=== PATIENT | male | born 1940 | race Caucasian/White ===

== ENCOUNTER 2016-08-02 04:48 | Emergency (ER) | payer MEDICARE, OTHER ==
[2016-08-02 01:46] LABS: BASOPHILS 0.4 %; BASOPHILS ABSOLUTE 0.03 10/3/uL (0.0-0.16); EOSINOPHILS 1.3 %; EOSINOPHILS ABSOLUTE 0.09 10/3/uL (0.0-0.53); ER CBC TAT 0 Hrs 08 Mins; IMMATURE GRANULOCYTES 0.1 %; IMMATURE GRANULOCYTES ABSOLUTE 0.01 10/3/uL (0.0-0.11); LYMPHOCYTES 14.4 %; LYMPHOCYTES ABSOLUTE 1.02 10/3/uL (0.67-4.30); MEAN CORPUS HGB CONC 33.6 g/dL (32.0-36.0); MEAN CORPUSCULAR HEMOGLOB 30.3 pg (26.0-34.0); MONOCYTES 6.2 %; MONOCYTES ABSOLUTE 0.44 10/3/uL (0.21-1.20); NEUTROPHILS 77.6 %; PLATELET COUNT 154 10/3/uL (150-400); RBC DISTRIBUTION WIDTH 13.6 % (12.0-16.0); RED CELL COUNT 5.09 10/6/uL (4.7-6.1); WHITE BLOOD CELLS 7.1 10/3/uL (4.5-10.5)
[2016-08-02 01:47] LABS: HEMATOCRIT 45.8 % (40.0-51.0); HEMOGLOBIN 15.4 g/dL (13.6-17.8); MANUAL DIFF NO %
[2016-08-02 01:48] LABS: ASCORBIC ACID (UR NOT ORDER) NEG (NEG); BILIRUBIN, URINE NEGATIVE (NEG); ER URINALYSIS TAT 0 Hrs 00 Mins; KETONE, URINE TRACE MG/DL (NEG); LEUKOCYTE ESTERASE(NOT OR NEG (NEG); NITRITE (URINE) NEG (NEG); WBC (NOT ORDERED) (RFLEX) 1 (0-5)
[2016-08-02 02:01] LABS: BUN (BLOOD UREA NITROGEN) 24 MG/DL (6-23); CALCIUM, SERUM 10.1 MG/DL (8.5-10.4); CHLORIDE, SERUM 108 MMOL/L (96-112); CO2 (CARBON DIOXIDE) 26 MMOL/L (24-34); CREATININE 1.58 MG/DL (0.70-1.30); GFR AFRICAN AMERICAN 49 ML/MIN (>=60); GFR NON AFRICAN AMERICAN 42 ML/MIN (>=60); GLUCOSE, SERUM 129 MG/DL (60-99); POTASSIUM, SERUM 4.3 MMOL/L (3.5-5.3); SODIUM, SERUM 142 MMOL/L (135-148)
[2016-08-02 04:33] LABS: ALBUMIN 4.4 G/DL (3.5-5.0); ALKALINE PHOSPHATASE 82 U/L (45-117); DIRECT BILIRUBIN 0.3 MG/DL (0.0-0.4); INDIRECT BILIRUBIN(NOT ORDER) 1.7 MG/DL (0.1-0.9); SGOT(AST) 29 U/L (5-40); SGPT(ALT) 39 U/L (5-65); TOTAL PROTEIN 7.7 G/DL (6.0-8.5)
[~2016-08-02 04:48] MED LIST: ASA5GR PO; ATEN25 PO; BL FLAX SEED1000 MG OR; CINNAMON 500MG; CO Q-10100 MG PO; CRESTOR20 MG PO; FLAXSEED OIL PO; MULTIPLE VIT PO; SLO-NIACIN500 MG PO; [UNRECOGNIZED DRUG - OTHER] OR
== END 2016-08-02 06:00 | disposition home or self-care (01) ==
LOC: ER 04:48
PROVIDERS: Specialist
DX: N13.2 Hydronephrosis with renal and ureteral calculous obstruction (principal); E80.7 Disorder of bilirubin metabolism, unspecified; N28.9 Disorder of kidney and ureter, unspecified; E11.9 Type 2 diabetes mellitus without complications; Z95.5 Presence of coronary angioplasty implant and graft; Z79.899 Other long term (current) drug therapy; Z79.82 Long term (current) use of aspirin
CPT/HCPCS: 74176; 80048; 80076; 81001; 83690; 85025; 96374; 96375; 99285; J2405